=== PATIENT | female | born 1960 | race Caucasian/White ===

== ENCOUNTER 2017-06-08 05:13 | Observation (INO) | payer OTHER ==
[2017-06-08 05:41] LABS: #Basophils 0.1 thou/uL (0.0-0.2); #Eosinphils 0.6 thou/uL (0.0-0.7); #Lymphocytes 2.1 thou/uL (1.20-3.40); #Monocytes 0.9 thou/uL (0.11-0.59); #Neutrophils 5.8 thou/uL (1.40-6.50); %Basophils 0.8 % (0.0-1.0); %Eosinophils 6.2 % (0.0-10.0); %Lymphocytes 22.4 % (21.0-51.0); %Monocytes 9.7 % (0.0-10.0); Hematocrit 45.1 % (36.0-47.0); Mean Platelet Volume 7.9 fL (7.4-10.4); Red Blood Cell (RBC) Count 4.78 mill/uL (4.20-5.40); White Blood Cell (WBC) Count 9.4 thou/uL (4.8-10.8)
[2017-06-08 05:58] LABS: ALT (SGPT) 21 U/L (8-55); AST (SGOT) 19 U/L (5-34); Alkaline Phosphatase 173 U/L (40-150); Anion Gap 12 mmol/L (10-20); BUN (Urea Nitrogen) 16 mg/dL (9.8-20.1); Bilirubin, Total 0.8 mg/dL (0.2-1.2); CK (CPK) 129 U/L (29-168); Calc. Creatinine Clearance 0 mL/min (70-130); Calcium 9.2 mg/dL (7.8-10.44); Carbon Dioxide 21 mmol/L (22-29); Chloride 113 mmol/L (98-107); Estimated GFR-MDRD 71; Globulin 3.2 g/dL (2.4-3.5); Protein, Total 7.2 g/dL (6.0-8.3)
[2017-06-08 06:01] LABS: Troponin I Less than 0.010 ng/mL (< 0.028)
[2017-06-08 06:19] LABS: Bilirubin Negative (Negative); Blood, Urine Trace (Negative); Glucose, Urine (Dipstick) Negative (Negative); Ketone, Urine Negative (Negative); Nitrite Negative (Negative); Protein, Urine (Dipstick) Trace mg/dL (Neg-Trace); Urobilinogen 0.2 mg/dL (0.2-1.0)
[2017-06-08 06:22] LABS: Bacteria/HPF None Seen HPF (None Seen); Hyaline Casts/LPF 0-3 HYALINE CAST LPF (0-3 Hyaline); RBC/HPF 0-3 HPF (0-3); Squamous Epithelial None Seen HPF (0-3); WBC/HPF 0-3 HPF (0-3)
--- NOTE | 2017-06-08 07:53 | RAD ---
SINGLE VIEW OF THE CHEST: Comparison: None. History: Cough. FINDINGS: Single view of the chest shows a normal sized cardiomediastinal silhouette. There is no evidence of consolidation, mass, or pleural effusion. The bones are unremarkable. IMPRESSION: No evidence of acute cardiopulmonary disease. POS: [facility]
--- NOTE | 2017-06-08 08:44 | CT ---
CTA CHEST WITH CONTRAST: Date: 06/08/17 COMPARISON: None. HISTORY: Shortness of breath since 5:00 yesterday with wheezing and nonproductive cough. TECHNIQUE: Multiple contiguous axial images were obtained in a CTA of the chest with contrast per pulmonary emb olism protocol. 3D oblique MIP reformats and direct coronal reformats were performed. FINDINGS: The pulmonary arteries are well opacified without filling defect to suggest pulmonary emboli. The he art is normal in size without focal cardiac abnormality. No hilar or mediastinal lymphadenopathy are seen. No suspicious pulmonary nodules or infiltrates are seen in the lungs. There are a few bulla in the u pper lobes. No pneumothorax or pleural effusion seen. The visualized subdiaphragmatic structures are unremarkable. The osseous structures and chest wall s oft tissues are unremarkable. IMPRESSION: No evidence of pulmonary thromboembolism. POS: [facility]
[2017-06-08] MEDS ORDERED: predniSONE 20 MG TAB ONE (08:53)
[2017-06-08 09:51] LABS: Troponin I 0.055 ng/mL (< 0.028)
[2017-06-08] MEDS ORDERED: Nitroglycerin 0.4 MG TAB (25 Tab Bottle) PO PRN (11:53)
[2017-06-08 12:05] VITALS: BMI 26.9
[2017-06-08 13:07] LABS: Troponin I 0.042 ng/mL (< 0.028)
[2017-06-08] MEDS: Nicotine 21 MG PATCH TD SCH (13:11)
--- NOTE | 2017-06-08 13:25 | HP ---
CHIEF COMPLAINT: Shortness of breath. HISTORY OF PRESENT ILLNESS: The patient is a 57-year-old female, who came to visit her mireille kinney who started at [employer] and started feeling short of breath yesterday. She had some dry cough. No fever, no chills. She woke up at 5:00 in the morning and she noticed that her breath ing is not getting any better, so she woke her daughter up. The daughter took her to the emergency room for further evaluation. She denied any chest pain. She denied any nausea, vomiting. She eloy ed any other complaints. PAST MEDICAL HISTORY: 1. Asthma, which is not active for a long, long time. 2. 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 3. Attention deficit hyperactivity disorder. 4. Hypertension, labile. ALLERGIES: PENICILLIN. FAMILY HISTORY: Father had bowel obstruction and at the age of 56. Mother is healthy. MEDICATIONS: Baclofen and lisinopril. She does not know the doses. Her medical doctor is from [place] and she is from [place]. She is visiting. So, surrogate decision maker is her daughter, Lizzie Irene. SOCIAL HISTORY: She smokes 1 pack per day after she developed a stroke. She did not smoke before. She does not drink. She does not use any illicit drugs. REVIEW OF SYSTEMS: The systems were reviewed and they are negative except for above-mentioned in hi story of present illness. PHYSICAL EXAMINATION: GENERAL: The patient is not in any distress at the time of my visit, she is not on any oxygen. HEENT: Head is atraumatic, normocephalic. Eyes PERRLA. Conjunctivae pinkish. Oral mucosa is mois t. NECK: Supple, no lymphadenopathy. Thyroid is not palpable. LUNGS: Clear. HEART: S1, S2 normal. No S3, no S4, no murmur. ABDOMEN: Soft, nontender, bowel sounds are present, no organomegaly. EXTREMITIES: Left upper extremity is paralyzed and contracted. Her pulses on both tibialis posteri or and dorsalis pedis arteries are slightly diminished on both feet. NEUROLOGIC: She is able to answer all my questions. She has this left upper extremity paresis, oth erwise her motor function is normal. Extraocular movements within normal limits. There is not any sensory deficit except for left upper extremity. LABORATORY AND X-RAY FINDINGS: Showed normal CBC. D-dimer 0.84. Sodium 142, potassium 4.0, chlori de 113, CO2 21, creatinine 0.83, BUN 16, alkaline phosphatase 173, troponin less than 0.10, first se t and second set is 0.055. The rest of chemistry within normal limits. Urinalysis showed trace of blood. EKG did not show any ischemic changes. She is in sinus rhythm. Although she has some right axis deviation on her EKG. QRS is progress well in precordial leads. Chest x-ray was done and it did not show any abnormalities. The CT angiogram was done and did not show any abnormalities either . ASSESSMENT AND PLAN: 1. Shortness of breath, which is most likely an asthma exacerbation. She started smoking after her stroke 2 years ago. The patient received breathing treatment in the emergency room and she is doing very well. She is not hypoxic. She does not wheeze anymore: 2. Elevated troponin second set. She was seen by a outside plant technician 2 years ago. She had multiple dif ferent tests done to find out what was the source of her CTA and the workup was negative and she was told that she has good heart 3. History of attention deficit hyperactivity disorder. 4. Labile hypertension. PLAN: Admission for observation to telemetry. Condition is fair. Activity: Bed rest and bathroom privileges. IV Hep-Lock. Continue her baclofen and lisinopril. Get additional set of cardiac enz ymes to see the current trending, jevon Wallace. The patient [facility] and will have her on H2 jaxon for PUD prophylaxis and on heparin for DVT prophylaxis s ubcutaneously. Also we will obtain echocardiogram to see her LVEF function and repeat EKG tomorrow morning.
[2017-06-08] MEDS ORDERED: Heparin 5,000 UNITS/ML VIAL SC SCH (15:00)
[2017-06-08 16:14] LABS: Troponin I 0.037 ng/mL (< 0.028)
[2017-06-08] MEDS ORDERED: ISOVUE-370 76%-LOCM 1 ML ONE (16:23)
[2017-06-08] MEDS: Baclofen 10 MG TAB PO SCH ×2 (16:23→21:41)
[2017-06-08] MEDS ORDERED: Lisinopril 5 MG TAB PO SCH (21:00)
[2017-06-08] MEDS ORDERED: Enoxaparin Sodium 40 MG/0.4 ML SYRINGE SC SCH (21:00)
[2017-06-08] MEDS: Famotidine 20 MG TAB PO SCH (21:42)
[2017-06-09] MEDS ORDERED: FLUoxetine HCl 20 MG CAP PO SCH (09:00)
[2017-06-09] MEDS: Baclofen 10 MG TAB PO SCH ×2 (09:00→12:29)
[2017-06-09] MEDS ORDERED: Regadenoson 0.4 MG/5 ML SYRINGE ONE (10:20)
[2017-06-09 12:21] VITALS: BP 115/65; TEMP 98.5
[2017-06-09] MEDS: Famotidine 20 MG TAB PO SCH (12:29)
--- NOTE | 2017-06-09 12:50 | NM ---
NUCLEAR MEDICINE CARDIAC STRESS WITH EJECTION FRACTION AND WALL MOTION: Date: 06/09/17 HISTORY: Chest pain. COMPARISON: None. TECHNIQUE: The patient was administered 9 mCi of technetium-99m sestamibi for rest imaging and 28.2 mCi of tech netium-99m sestamibi for stress imaging. Cardiac gating is performed. FINDINGS: Homogeneous distribution of the radiotracer in the left ventricle. No reversibility. No fixed defect . TID is 1.09. End-diastolic volume is 48 mL. End-systolic volume is 10 mL. CARDIAC GATING: Normal motion and thickening. Ejection fraction is 78%. IMPRESSION: 1. No reversibility. No fixed defect. 2. Ejection fraction is 78%. POS: [facility]
--- NOTE | 2017-06-09 14:24 | DIS ---
DATE OF DISCHARGE: 06/09/2017 DIAGNOSES AT TIME OF DISCHARGE: 1. Exacerbation of asthma, improved. 2. Hypertension. 3. History of cerebrovascular accident Hemorrhagic with left upper extremity paresis. 4. Attention deficit hyperactivity disorder. 5. Hypertension. HOSPITAL COURSE: The patient is a 57-year-old female who came to visit her daughter who s tarted studies at [facility] and she started having some shortness of breath which was associ ated with some dry cough. There was not any fever or chills. She got some cough syrup from a local store and used it and it did not really help her much, so she decided to come to the emergency room for further evaluation. She was seen in the emergency room. She got treatment and her pulmonary s tatus improved with DuoNebs and steroids, but her troponin was slightly elevated at 0.055 and she wa s admitted to the hospital for further evaluation. Her pulmonary status was good during this hospit alization, but the third set of troponin came back again slightly elevated at 0.037 and the decision was made about doing a stress test on her since she has a history of a stroke in relatively young a ge. She underwent a stress test which was nuclear which showed ejection fraction of 78%, normal mot ion and thickening on the cardia gating, there was no reversibility. No fixed defect. The patient is doing well. PHYSICAL EXAMINATION: VITAL SIGNS: Blood pressure is 150/65, pulse is 80, temperature is 98.5. Respiratory rate is 18, a nd pulse oximetry 98%. LUNGS: Clear. CARDIOVASCULAR: S1, S2 normal. No S3, no S4, no murmur. ABDOMEN: Soft, nontender, bowel sounds are present. No organomegaly. She is discharged home in good condition. I am going to give her a prescription for albuterol HFA t o use 2 puffs 4 times a day p.r.n. as needed. Also, I am going to put her on nicotine patch 21 mg. This is [id number], but I am going to order some Lipitor 20 mg to use at bedtime and she woul d take her home meds which is baclofen 20 mg 4 times a day, fluoxetine 20 mg daily, and Lisinopril 5 mg daily. She is discharged in good condition. She is going to stay on heart healthy diet. She will follow u p with her primary care physician after she returns to [place] where she lives. The time was spent on this discharge is less than 30 minutes.
[2017-06-09] MEDS: Nicotine 21 MG PATCH TD SCH (15:42)
== END 2017-06-09 16:38 | disposition home or self-care (01) ==
LOC: EDBD 05:13 → ERS 05:13 → 2SW 10:45
PROVIDERS: ADMIT Internal Medicine; ATTEND Internal Medicine
DX: J45.901 Unspecified asthma with (acute) exacerbation (principal); I10 Essential (primary) hypertension; I69.354 Hemiplegia and hemiparesis following cerebral infarction affecting left non-dominant side; F90.9 Attention-deficit hyperactivity disorder, unspecified type; F17.210 Nicotine dependence, cigarettes, uncomplicated; Z79.899 Other long term (current) drug therapy; Z88.0 Allergy status to penicillin
CPT/HCPCS: 36415; 71010; 71275; 78452; 80053; 81003; 81015; 82553; 84484; 85025; 85379; 93005; 93017; 93306; 94640; 94760; 96372; 99406; A9500; G0378; J1650; J2785; J7506; J7620

== ENCOUNTER 2020-09-20 02:59 | Emergency (ER) | payer OTHER ==
[2020-09-20] MEDS ORDERED: Ondansetron ODT 4 MG TAB ONE (03:17)
[2020-09-20 03:33] LABS: #Basophils 0.1 thou/uL (0.0-0.2); #Lymphocytes 1.5 thou/uL (1.20-3.40); #Monocytes 0.7 thou/uL (0.11-0.59); #Neutrophils 10.8 thou/uL (1.40-6.50); %Basophils 0.6 % (0.0-1.0); %Eosinophils 0.3 % (0.0-10.0); %Lymphocytes 11.1 % (21.0-51.0); %Monocytes 5.6 % (0.0-10.0); %Neutrophils 82.4 % (42.0-75.0); Hemoglobin 15.7 g/dL (12.0-16.0); Mean Corpuscular HGB CONC 35.3 g/dL (32.0-36.0); Mean Corpuscular Volume 93.6 fL (78.0-98.0); Mean Platelet Volume 8.2 fL (7.4-10.4); Platelet Count 235 thou/uL (130-400); RBC Distribution Width 11.7 % (11.5-14.5); Red Blood Cell (RBC) Count 4.75 mill/uL (4.20-5.40); White Blood Cell (WBC) Count 13.2 thou/uL (4.8-10.8)
[2020-09-20 03:57] LABS: ALT (SGPT) 40 U/L (8-55); AST (SGOT) 22 U/L (5-34); Albumin 4.7 g/dL (3.5-5.0); Alkaline Phosphatase 163 U/L (40-110); Anion Gap 19 mmol/L (10-20); BUN (Urea Nitrogen) 9 mg/dL (9.8-20.1); Bilirubin, Total 1.2 mg/dL (0.2-1.2); Calc. Creatinine Clearance 0 mL/min (70-130); Calcium 9.7 mg/dL (7.8-10.44); Carbon Dioxide 21 mmol/L (22-29); Chloride 102 mmol/L (98-107); Globulin 3.3 g/dL (2.4-3.5); Glucose 137 mg/dL (70-105); Potassium 3.7 mmol/L (3.5-5.1); Sodium 138 mmol/L (136-145)
[2020-09-20] MEDS ORDERED: Ketorolac Tromethamine 30 MG/ML VIAL ONE (05:20)
[2020-09-20] MEDS ORDERED: cloNIDine 0.1 MG TAB ONE (05:20)
--- NOTE | 2020-09-20 10:19 | CT ---
PRELIMINARY REPORT/[facility]/EMERGENCY AFTER HOURS PROCEDURE: EXAM: CTA Chest and Abdomen with Intravenous Contrast CLINICAL HISTORY: 60-year-old female patient presents ER with complaint of hypertension, dizziness, b ack pain, nausea, vomiting that began earlier this evening. The patient reports her blood pressure wa s 194/118 at home. TECHNIQUE: Axial CTA images of the chest and abdomen with intravenous contrast. Reformatted images we re created and reviewed. Three-dimensional MIP/volume rendered reformations were performed. CONTRAST: With; ISOVUE 370,100mL COMPARISON: None provided. FINDINGS: VASCULATURE: AORTA There is no evidence for aneurysm or dissection of the thoracic or abdominal aorta. PULMONARY ARTERIES The examination is optimized for assessment of the aorta, rather than the pulmonary arteries. No evidence of central or segmental pulmonary embolism is seen. CHEST: Lungs: The lungs appear clear. No mass or consolidation. Bilateral lower lobe air cysts. Pleural spaces: No evidence of pneumothorax. No pleural effusion. Heart and mediastinum: No cardiomegaly. No significant pericardial effusion. ABDOMEN: LIVER Unremarkable. No mass. GALLBLADDER AND BILE DUCTS Radiodense stone within the gallbladder. No evidence of gallbladder wall inflammation. PANCREAS Unremarkable. No ductal dilation. SPLEEN Unremarkable. ADRENAL No mass. KIDNEYS AND URETERS 4 mm stone at the mid pole of the right kidney. No hydronephrosis. No stones within the ureters. STOMACH AND BOWEL No obstruction. No bowel wall thickening. No CT evidence of acute diverticulitis. Colonic stool lito en is moderate. APPENDIX The appendix is not seen. PERITONEUM No free fluid. No free air. No abscess. LYMPH NODES No lymphadenopathy is evident. BONES AND SOFT TISSUES No acute osseous abnormality. Degenerative changes of the lumbar spine. The soft tissues are unrema rkable. IMPRESSION: 1. There is no evidence for aneurysm or dissection of the thoracic or abdominal aorta. 2. Cholelithiasis. 3. Right nephrolithiasis. ELECTRONICALLY SIGNED BY: Mele Herndon M.D. Sep 20, 2020 4:50:23 AM [employer] This report is intended for review by the ordering physician only, in accordance of law. If you recei ve this report in error, please call [facility] at [phone]. FINAL REPORT EMERGENT AFTER HOURS CT ANGIO OF CHEST AND ABDOMEN PERFORMED WITH INTRAVENOUS CONTRAST ENHANCEMENT AN D 3D RECONSTRUCTIONS: HISTORY: Hypertension, dizziness, and back pain. Evaluation for aortic dissection. FINDINGS: The lungs are clear of any infiltrative process. There are some thin-walled cysts seen in the left l ower lobe. No mediastinal or hilar adenopathy. The pulmonary arteries are fairly well opacified to evaluate for simple pulmonary embolus which I see no evidence of. The thoracic aorta is normal in caliber. No d issection. CT ANGIO OF ABDOMEN PERFORMED WITH INTRAVENOUS CONTRAST ENHANCEMENT WITH 3D RECONSTRUCTIONS: The liver and spleen appear unremarkable. Pancreas region is unremarkable. A large gallstone is pre sent. The gallbladder is mildly distended. Right and left adrenal glands and right and left kidneys are normal in size. There is a punctate non obstructing right renal calculus. NO significant periaortic or mesenteric adenopathy. The abdominal aorta is normal in caliber, no dissection. IMPRESSION: 1. No evidence of aortic aneurysm or dissection. 2. Gallstone. 3. Nonobstructing right renal calculus. 4. This report is in agreement with the temporary report issued by [facility]. POS: [facility] [place]
[2020-09-20] MEDS ORDERED: Iopamidol-370 76% 500 ML 1 ML ONE (11:30)
== END 2020-09-20 05:40 | disposition home or self-care (01) ==
LOC: ERS 02:59
DX: I10 Essential (primary) hypertension (principal); R11.2 Nausea with vomiting, unspecified; M54.9 Dorsalgia, unspecified; F17.210 Nicotine dependence, cigarettes, uncomplicated; Z86.73 Personal history of transient ischemic attack (TIA), and cerebral infarction without residual deficits; Z79.899 Other long term (current) drug therapy
CPT/HCPCS: 36415; 71275; 74174; 80053; 82550; 83690; 84484; 85025; 93005; 96374; J1885; Q0162; Q9967

== ENCOUNTER 2020-10-13 02:51 | Inpatient (IN) | payer OTHER ==
[2020-10-13 03:35] VITALS: BMI 27.6
[2020-10-13] MEDS ORDERED: Acetaminophen 325 MG TAB PO PRN (03:58)
[2020-10-13] MEDS ORDERED: Ondansetron ODT 4 MG TAB PO PRN (03:58)
[2020-10-13] MEDS ORDERED: HYDROcodone/Acetaminophen 5/325 mg Tablet PO PRN (03:58)
[2020-10-13] MEDS ORDERED: Morphine 2 MG/ML VIAL SLOW IVP PRN (04:09)
[2020-10-13] MEDS: Sodium Chloride 0.9% 1,000 ML IV SCH ×3 (04:34→20:24)
[2020-10-13 05:38] LABS: #Basophils 0.1 thou/uL (0.0-0.2); #Eosinphils 0.1 thou/uL (0.0-0.7); #Lymphocytes 1.9 thou/uL (1.20-3.40); #Monocytes 1.2 thou/uL (0.11-0.59); #Neutrophils 9.8 thou/uL (1.40-6.50); %Basophils 0.8 % (0.0-1.0); %Eosinophils 0.5 % (0.0-10.0); %Lymphocytes 14.5 % (21.0-51.0); %Monocytes 8.8 % (0.0-10.0); %Neutrophils 75.4 % (42.0-75.0); Hemoglobin 13.6 g/dL (12.0-16.0); Mean Corpuscular Hemoglobin 32.3 pg (27.0-31.0); Mean Platelet Volume 8.5 fL (7.4-10.4); Platelet Count 173 thou/uL (130-400); Red Blood Cell (RBC) Count 4.22 mill/uL (4.20-5.40)
[2020-10-13 06:01] LABS: Anion Gap 15 mmol/L (10-20); BUN (Urea Nitrogen) 19 mg/dL (9.8-20.1); Calc. Creatinine Clearance 63 mL/min (70-130); Calcium 8.7 mg/dL (7.8-10.44); Carbon Dioxide 18 mmol/L (22-29); Chloride 110 mmol/L (98-107); Glucose 117 mg/dL (70-105); Potassium 4.1 mmol/L (3.5-5.1); Sodium 139 mmol/L (136-145)
[2020-10-13 07:48] LABS: Bacteria/HPF None Seen HPF (None Seen); Bilirubin Negative (Negative); Blood, Urine 3+ (Negative); Clarity Clear (Clear); Glucose, Urine (Dipstick) Normal (Negative); Ketone, Urine Negative (Negative); Leukocyte Negative Leu/uL (Negative); Nitrite Negative (Negative); Protein, Urine (Dipstick) 30 mg/dL (Neg-Trace); RBC/HPF Greater than 50 HPF (0-3); Squamous Epithelial 0-3 HPF (0-3); Urobilinogen Normal mg/dL (Less than 2)
[2020-10-13 08:22] LABS: Specific Gravity, Urine 1.051 (1.002-1.036)
[2020-10-13 08:24] LABS: Calcium Oxalate Crystals 1+ HPF (None Seen)
[2020-10-13] MEDS: Ondansetron PF 4 MG/2 ML Vial IVP PRN ×2 (08:55→23:46)
[2020-10-13] MEDS ORDERED: FLU VACC QS2020-21(6MOS UP)/PF 60 MCG/0.5 ML SYRINGE IM ONE (09:00)
[2020-10-13] MEDS: Metoclopramide HCl 10 MG/2 ML VIAL IVP PRN ×2 (10:39→20:28)
[2020-10-13] MEDS: Ketorolac Tromethamine 30 MG/ML VIAL IVP SCH ×3 (10:40→23:46)
[2020-10-14] MEDS: Ketorolac Tromethamine 30 MG/ML VIAL IVP SCH ×3 (05:16→17:59)
[2020-10-14] MEDS: Sodium Chloride 0.9% 1,000 ML IV SCH ×2 (05:19→17:15)
[2020-10-14] MEDS: Metoclopramide HCl 10 MG/2 ML VIAL IVP PRN ×2 (05:19→17:58)
[2020-10-14] MEDS ORDERED: FLU VACC QS2020-21(6MOS UP)/PF 60 MCG/0.5 ML SYRINGE IM ONE (09:00)
[2020-10-14 09:47] LABS: #Basophils 0.1 thou/uL (0.0-0.2); #Eosinphils 0.2 thou/uL (0.0-0.7); #Lymphocytes 1.7 thou/uL (1.20-3.40); #Monocytes 0.7 thou/uL (0.11-0.59); #Neutrophils 4.8 thou/uL (1.40-6.50); %Basophils 0.7 % (0.0-1.0); %Eosinophils 2.8 % (0.0-10.0); %Lymphocytes 22.7 % (21.0-51.0); %Monocytes 9.2 % (0.0-10.0); %Neutrophils 64.5 % (42.0-75.0); Hemoglobin 12.4 g/dL (12.0-16.0); Mean Corpuscular HGB CONC 34.7 g/dL (32.0-36.0); Mean Corpuscular Hemoglobin 33.5 pg (27.0-31.0); Mean Corpuscular Volume 96.6 fL (78.0-98.0); Mean Platelet Volume 8.8 fL (7.4-10.4); Platelet Count 125 thou/uL (130-400); RBC Distribution Width 11.9 % (11.5-14.5); Red Blood Cell (RBC) Count 3.71 mill/uL (4.20-5.40); White Blood Cell (WBC) Count 7.4 thou/uL (4.8-10.8)
[2020-10-14 10:06] LABS: Anion Gap 16 mmol/L (10-20); BUN (Urea Nitrogen) 16 mg/dL (9.8-20.1); Calc. Creatinine Clearance 71 mL/min (70-130); Calcium 8.6 mg/dL (7.8-10.44); Carbon Dioxide 14 mmol/L (22-29); Chloride 114 mmol/L (98-107); Glucose 81 mg/dL (70-105); Potassium 4.8 mmol/L (3.5-5.1); Sodium 139 mmol/L (136-145)
[2020-10-14] MEDS: Ondansetron PF 4 MG/2 ML Vial IVP PRN (12:42)
[2020-10-15] MEDS: Ketorolac Tromethamine 30 MG/ML VIAL IVP SCH ×2 (00:11→05:27)
[2020-10-15] MEDS: Metoclopramide HCl 10 MG/2 ML VIAL IVP PRN ×2 (00:11→05:28)
[2020-10-15] MEDS: Sodium Chloride 0.9% 1,000 ML IV SCH ×2 (00:12→05:36)
[2020-10-15 08:09] LABS: #Eosinphils 0.3 thou/uL (0.0-0.7); #Lymphocytes 1.3 thou/uL (1.20-3.40); #Monocytes 0.5 thou/uL (0.11-0.59); #Neutrophils 2.8 thou/uL (1.40-6.50); %Basophils 0.8 % (0.0-1.0); %Eosinophils 5.9 % (0.0-10.0); %Lymphocytes 26.5 % (21.0-51.0); %Monocytes 10.1 % (0.0-10.0); %Neutrophils 56.7 % (42.0-75.0); Hemoglobin 11.5 g/dL (12.0-16.0); Mean Corpuscular HGB CONC 35.7 g/dL (32.0-36.0); Mean Corpuscular Hemoglobin 33.8 pg (27.0-31.0); Mean Corpuscular Volume 94.7 fL (78.0-98.0); Mean Platelet Volume 9.1 fL (7.4-10.4); Platelet Count 115 thou/uL (130-400); RBC Distribution Width 11.7 % (11.5-14.5); Red Blood Cell (RBC) Count 3.41 mill/uL (4.20-5.40)
[2020-10-15 08:35] LABS: ALT (SGPT) 25 U/L (8-55); AST (SGOT) 21 U/L (5-34); Albumin 3.2 g/dL (3.5-5.0); Alkaline Phosphatase 111 U/L (40-110); Anion Gap 14 mmol/L (10-20); BUN (Urea Nitrogen) 12 mg/dL (9.8-20.1); Bilirubin, Total 1.1 mg/dL (0.2-1.2); Calc. Creatinine Clearance 88 mL/min (70-130); Calcium 8.2 mg/dL (7.8-10.44); Carbon Dioxide 15 mmol/L (22-29); Chloride 114 mmol/L (98-107); Globulin 2.6 g/dL (2.4-3.5); Glucose 89 mg/dL (70-105); Potassium 4.3 mmol/L (3.5-5.1); Protein, Total 5.8 g/dL (6.0-8.3); Sodium 139 mmol/L (136-145)
[2020-10-15 11:54] VITALS: BP 159/74; TEMP 98.3
== END 2020-10-15 13:10 | disposition home or self-care (01) | DRG 690 ==
LOC: SURG B 02:51
PROVIDERS: ADMIT Student in an Organized Health Care Education/Training Program; ATTEND Hospitalist
DX: N13.6 Pyonephrosis (principal); N20.2 Calculus of kidney with calculus of ureter; I69.354 Hemiplegia and hemiparesis following cerebral infarction affecting left non-dominant side; Z66 Do not resuscitate; I10 Essential (primary) hypertension; J45.909 Unspecified asthma, uncomplicated; F90.9 Attention-deficit hyperactivity disorder, unspecified type; F17.200 Nicotine dependence, unspecified, uncomplicated; K80.80 Other cholelithiasis without obstruction; Z88.0 Allergy status to penicillin
CPT/HCPCS: 36415; 80048; 80053; 81003; 81015; 82365; 85025; 87086; 88300; J1885; J1956; J2270; J2405; J2765